=== PATIENT | female | born 1980 | race Caucasian/White ===

== ENCOUNTER 2016-08-02 05:29 | Day surgery (SDC) | payer OTHER ==
[~2016-08-02] VITALS: Ht 154.9 cm; Wt 56.4 kg
[2016-08-02 06:26] VITALS: Ht 154.9 cm; Wt 56.4 kg
[2016-08-02] MEDS ORDERED: PANT40TA4 PO (06:39)
[2016-08-02] MEDS ORDERED: RANI150T9 PO (06:39)
[2016-08-02 06:43] VITALS: BP 114/68; PULSE 61; RESP 16
[2016-08-02] MEDS ORDERED: FENTAnyl 50 MCG/ML VIAL ONE (07:31)
[2016-08-02] MEDS ORDERED: MIDAZOLAM 1 MG/ML 2 ML INJ ONE ×3 (07:31)
[2016-08-02 07:56] VITALS: BP 102/56; RESP 20
--- NOTE | 2016-08-02 11:07 | GILP ---
DATE OF PROCEDURE: 08/02/2016 NAME OF PROCEDURE: Esophagogastroduodenoscopy and biopsy. SURGEON: Mercedes Yip MD PREOPERATIVE DIAGNOSES: 1. Abdominal pain. 2. Chronic heartburn. POSTOPERATIVE DIAGNOSES: 1. Hiatal hernia. 2. Gastroesophageal reflux disease. 3. Gastritis. 4. Gastric mucosal biopsies were taken for Helicobacter pylori test. INDICATION FOR THE PROCEDURE: Ms. Britt Soto is a 36-year-old female patient who had upper ab dominal pain and chronic heartburn, not responding to therapy. The patient was scheduled for endosc opic examination for further evaluation. The procedure and possible complications are well explained to the patient, she understood and conse nted to the procedure. DESCRIPTION OF PROCEDURE: Under the influence of fentanyl and Versed, the gastroscope was carefully introduced into the esophagus and under direct vision, it was advanced to the stomach and through t he pylorus into the duodenal bulb and descending duodenum. FINDINGS: ESOPHAGUS: The patient had hiatal hernia and gastroesophageal reflux disease. STOMACH: She had gastritis. Gastric mucosal biopsies were taken for H. pylori test. DUODENUM: Normal. She tolerated the procedure very well and there was no complication from the procedure. At the end of the procedures, she was awake with stable vital signs and she was discharged home to the care of her family. IMPRESSION: 1. Hiatal hernia. 2. Gastroesophageal reflux disease. 3. Gastritis. 4. Gastric mucosal biopsies were taken for Helicobacter pylori test. PLAN: 1. Pantoprazole 40 mg p.o. b.i.d. 2. Await H. pylori test report. Dictated By: MERCEDES JORDAN/LOWELL Conf#: [id number] DID#: [id number] CC: MERCEDES YIP MD;*EndCC*
== END 2016-08-02 08:56 | disposition home or self-care (01) ==
LOC: GIL 05:29
PROVIDERS: ATTEND Internal Medicine Gastroenterology
DX: K44.9 Diaphragmatic hernia without obstruction or gangrene (principal); K21.9 Gastro-esophageal reflux disease without esophagitis; K29.70 Gastritis, unspecified, without bleeding
CPT/HCPCS: 43239; 84703; 87081; J2250; J3010

== ENCOUNTER 2018-08-19 08:35 | Day surgery (SDC) | payer OTHER ==
[2018-08-19] VITALS (8 sets, daily range): BP systolic 107–127; BP diastolic 56–68; PULSE 60–71; RESP 16–20; Ht 154.9 cm; Wt 57.9 kg
[~2018-08-19] VITALS: Ht 154.9 cm; Wt 57.9 kg
[~2018-08-19 08:35] MED LIST: BALANCED SALT SOLN 15 ML OPH IRRIG ONE; LIDOCAINE 2% (SDV) 5 ML INJ ONE; MITOMYCIN 5 MG INJ OP SCH; PANT40TA4 PO; RANI150T35 PO
[2018-08-19] MEDS ORDERED: LIDOCAINE 1%/EPI (1:100,000) (MDV) 20 ML ONE (09:56)
[2018-08-19] MEDS ORDERED: HYDROmorphONE 1 MG/5 ML IV SYRINGE IV PRN (10:00)
[2018-08-19] MEDS ORDERED: FENTAnyl 50 MCG/ML VIAL IV PRN (10:00)
--- NOTE | 2018-08-19 10:00 | PREAC ---
Date/Time of Note Date/Time of Note DATE: 08/19/18 TIME: 09:59 Anesthesia Eval and Record Evaluation Time Pre-Procedure Interview DATE: 08/19/18 TIME: 09:59 Age 38 Sex female NPO: 8 hrs Preoperative diagnosis L eye pterygium Planned procedure L pterygium removal Past Medical History Past Medical History: Includes GI: GERD Surgery & Anesthesia Issues No known issue Meds Anticoagulation: No Beta Paulo within 24 hr: No Reason Beta Paulo not given: Pt. not on B-Paulo Discontinued Reported Medications Ranitidine Hcl* (Zantac*) 150 Mg Tablet, 150 MG PO HS, #30 TAB 08/02/16 Pantoprazole* (Pantoprazole*) 40 Mg Tablet.dr, 40 MG PO BID, TAB 08/02/16 Current Medications Mitomycin (Mutamycin) 0.3 mg INTRA-OP OP ; Start 08/19/18 at 07:00; Stop 08/19/18 at 15:00 Meds reviewed: Yes Allergies Coded Allergies: No Known Drug Allergies (Verified Allergy, Unknown, 08/19/18) Allergies Reviewed: Yes Labs/Studies Labs Reviewed: Reviewed by anesthesiologist test: Negative Pre-procedure Exam Last vitals Vital Signs Date Temp Pulse Resp B/P (MAP) Pulse Ox O2 O2 Flow FiO2 Time Delivery Rate 08/19/18 98.2 61 16 115/62 100 Room Air 09:42 (79) Airway: Adequate mouth opening, Adequate thyromental dist Mallampati: Mallampati II Teeth: Normal Lung: Normal Heart: Normal ASA Physical Status ASA physical status: 2 Emergency: None Planned Anesthetic General/MAC: MAC Pre-operative Attestations Prior to commencing anesthesia and surgery, the patient was re-evaluated, there was verification of: *The patient's identity *The results of appropriate recent lab work and preoperative vital signs *The above evaluation not changing prior to induction *Anesthetic plan, risk benefits, alternative and complications discussed with patient/family; questions answered; patient/family understands, accepts and wishes to proceed. ИВАН BARNES Aug 19, 2018 10:00
--- NOTE | 2018-08-19 10:20 | HPN ---
Date/Time of Note Date/Time of Note DATE: 08/19/18 TIME: 10:19 Interval H&P Admission Note Pt. seen H&P reviewed: No system changes TIMOTHY ALFORD MD Aug 19, 2018 10:20
[2018-08-19] MEDS ORDERED: MIDAZOLAM 1 MG/ML 2 ML INJ ONE (10:27)
[2018-08-19] MEDS ORDERED: FENTAnyl 50 MCG/ML VIAL ONE (10:51)
[2018-08-19] MEDS ORDERED: PROPOFOL 20 ML ONE (10:51)
[2018-08-19] MEDS ORDERED: TOBRAMYCIN/DEXAMETH 3.5 GM OPH OINT LEFT EYE ONE (11:07)
--- NOTE | 2018-08-19 11:30 | SIPON ---
Date/Time of Note Date/Time of Note DATE: 08/19/18 TIME: 11:26 Operative Report Preoperative Diagnosis pterygium left eye Postoperative Diagnosis same Operation/Procedure Performed excision of pterygium Surgeon see signature line talent assistant none Anesthesia: MAC Estimated blood loss: none Transfusion Required none Specimen none Grafts/Implants none Complications none TIMOTHY ALFORD MD Aug 19, 2018 11:30
--- NOTE | 2018-08-19 13:12 | OPR ---
DATE OF OPERATION: SURGEON: Heaven Hines MD [employer] SPECIALIST: None. ANESTHESIOLOGIST: PREOPERATIVE DIAGNOSIS: Pterygium, left eye. POSTOPERATIVE DIAGNOSIS: Pterygium, left eye. OPERATION: Excision of pterygium, left eye; application of mitomycin C; closure of defect with conju nctival advancement flaps. DESCRIPTION OF PROCEDURE: Following standard preparation and draping of the patient, a solid-blade l id speculum was placed for immobilization of the lids. A small amount of 2% Xylocaine with epinephri ne was injected beneath the body of the pterygium so as to elevate it from the underlying sclerae. A fter adequate local anesthesia was obtained, Jose E scissors were simply used to make an incision a long the edges of the pterygium, amputating the body approximately 1 cm posterior to the limbus. At the limbus, the major portion of the tissue was simply excised using sharp scissors. Using a rotating alexandru bur, all of the scar tissue on the cornea was removed down to clear cornea. At this point, bleeding points were secured with the heat cautery. Mitomycin C (0.2 mg/ml) was now applied to the limbal regions for three minutes. After three minutes, the eye was copiously irrigate d with balanced salt solution. A peritomy was now performed both superiorly and inferiorly and relax ing incisions made at approximately the 6 and 12 o'clock positions. The undermining conjunctiva was now pulled both superiorly and inferiorly so as to close the previously made defect from which the pt erygium had been removed. Sutures of interrupted 8-0 Vicryl were used and a bite of the underlying s clera was taken so as to ensure adequate maintenance of the flaps in a nonmovable position. Betadine 5% solution was placed on the eye, along with TobraDex ointment. A light pressure dressing was applied, and the patient returned to the recovery room in satisfactory condition. Dictated By: HEAVEN FLETCHER/LOWELL Conf#: [id number] DID#: [id number]
--- NOTE | 2018-08-20 07:28 | PAC ---
Date/Time of Note Date/Time of Note DATE: 08/20/18 TIME: 07:28 Post-Anesthesia Notes Post-Anesthesia Note Last documented vital signs Vital Signs Date Temp Pulse Resp B/P (MAP) Pulse Ox O2 O2 Flow FiO2 Time Delivery Rate 08/19/18 97.9 71 18 127/68 100 Room Air 12:50 (87) Activity: WNL Respiratory function: WNL Cardiovascular function: WNL Mental status: Baseline Pain reasonably controlled: Yes Hydration appropriate: Yes Nausea/Vomiting absent: Yes ИВАН BARNES Aug 20, 2018 07:28
== END 2018-08-19 12:51 | disposition home or self-care (01) ==
LOC: SDS 08:35
PROVIDERS: ATTEND Ophthalmology
DX: H11.002 Unspecified pterygium of left eye (principal); K21.9 Gastro-esophageal reflux disease without esophagitis
CPT/HCPCS: 65426; 84703; J2250; J3010